=== PATIENT | male | born 2000 | race Caucasian/White ===

== ENCOUNTER → 2024-08-26 08:26 | Outpatient (REF) | payer BC, SELFPAY | LOC: HWRCS 08:26 | PROVIDERS: ATTENDING PHYSICIAN Internal Medicine Cardiovascular Disease | DX: Q87.40 Marfan syndrome, unspecified (principal); Q87.89 Other specified congenital malformation syndromes, not elsewhere classified; F90.9 Attention-deficit hyperactivity disorder, unspecified type | CPT/HCPCS: 93306 ==